=== PATIENT | female | born 1960 | race Caucasian/White ===

== ENCOUNTER 2016-12-18 10:55 | Observation (INO) | payer BC ==
[2016-12-18] MEDS ORDERED: Aspirin 81 MG Tab.Chew PO ONE (10:58)
[2016-12-18] MEDS ORDERED: Sodium Chloride 0.9% 1,000 ML IV ONE (10:58)
[2016-12-18] MEDS ORDERED: Alum Hydrox/Mag Hydrox/Simeth 15 ML, Metoclopramide 5 MG, Lidocaine 2% 5 ML PO ONE ×3 (11:39)
[2016-12-18] MEDS ORDERED: Ketorolac 30 MG/ML SDV IVPUSH ONE (11:39)
--- NOTE | 2016-12-18 11:41 | EDM.PDOC ---
ED HPI GENERAL MEDICAL PROBLEM - General Chief Complaint: Chest Pain Stated Complaint: CHEST PAIN Time Seen by Provider: 12/18/16 10:55 Source of Information: Reports: Patient History Limitations: Reports: No limitations - History of Present Illness INITIAL COMMENTS - FREE TEXT/NARRATIVE: History of present illness: [56-year-old female comes in with complaints of chest pressure radiating arm pain numbness as well as lip numbness and some minor neck pressure on the left. Patient has a strong family history of cardiac problems as well as some neurologic history of her own.] Review of systems: As per history of present illness and below otherwise all systems reviewed and negative. Past medical history: As per history of present illness and as reviewed below otherwise noncontributory. Surgical history: As per history of present illness and as reviewed below otherwise noncontributory. Social history: No reported history of drug or alcohol abuse. Family history: As per history of present illness and as reviewed below otherwise noncontributory. Physical exam: HEENT: Atraumatic, normocephalic, pupils reactive, negative for conjunctival pallor or scleral icterus, mucous membranes moist, throat clear, neck supple, nontender, trachea midline. Lungs: Clear to auscultation, breath sounds equal bilaterally, chest nontender. Heart: S1S2, regular, negative for clicks, rubs, or JVD. Abdomen: Soft, nondistended, nontender. Negative for masses or hepatosplenomegaly. Negative for costovertebral tenderness. Pelvis: Stable nontender. Genitourinary: Deferred. Rectal: Deferred. Extremities: Atraumatic, negative for cords or calf pain. Neurovascular unremarkable. Neuro: Awake, alert, oriented. Cranial nerves II through XII unremarkable. Cerebellum unremarkable. Motor and sensory unremarkable throughout. Exam nonfocal. All exams are negative at this time. Will admit patient observation for further cardiac monitoring. Diagnostics: [CBC, CMP, EKG, chest x-ray, troponin] Therapeutics: [IV] Impression: [chest pain] Plan: [admit for Observation] Definitive disposition and diagnosis as appropriate pending reevaluation and review of above. Left Chest Pain Score (Numeric/FACES): 3 - Related Data Allergies Allergy/AdvReac Type Severity Reaction Status Date / Time Penicillins Allergy Anaphylactic Verified 12/18/16 11:10 Shock venom-honey bee Allergy Anaphylactic Verified 12/18/16 11:10 [bee venom (honey bee)] Shock Home Meds: Home Meds Acetaminophen [Tylenol] 2 tab PO TID 09/14/16 [History] Citalopram Hydrobromide [Citalopram HBr] 1 tab PO BEDTIME 09/14/16 [History] Citalopram [Celexa] 1 tab PO BEDTIME 09/14/16 [History] Cyclobenzaprine [Flexeril] 1 tab PO DAILY PRN 09/14/16 [History] Cyclobenzaprine [Flexeril] 10 mg PO TID #30 tablet 09/14/16 [Rx] Gabapentin [Gabapentin] 4 cap PO TID 09/14/16 [History] LORazepam [LORazepam] 1 tab PO BEDTIME 09/14/16 [History] Pantoprazole [Protonix] 40 mg PO BEDTIME 09/14/16 [History] Prednisone [IJD: predniSONE] 20 mg PO WITHBREAKFAST #20 tab 09/14/16 [Rx] Simvastatin [Simvastatin] 1 tab PO BEDTIME 09/14/16 [History] Past Medical History HEENT History: Reports: None Cardiovascular History: Reports: High cholesterol, Hypertension Other Cardiovascular History: Pt stated "I had blood pressure problems in the past". 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 - Infectious Disease History Infectious Disease History: Reports: Chicken pox, Shingles - Past Surgical History GI Surgical History: Reports: Appendectomy Female Surgical History: Reports: Hysterectomy, Salpingo-oophorectomy Social & Family History - Family History Family Medical History: Noncontributory - Tobacco Use Smoking Status *Q: Current Every Day Smoker Years of Tobacco use: 15 Packs/Tins Daily: 0.5 - Caffeine Use Caffeine Use: Reports: Coffee Caffeine Use Comment: 2cups/day - Recreational Drug Use Recreational Drug Use: No ED ROS GENERAL - Review of Systems Review Of Systems: See Below (See history of present illness) ED EXAM, GENERAL - Physical Exam Exam: See Below (See history of present illness) Course - Vital Signs Last Recorded V/S: Last Vital Signs Temp 38.0 C 12/18/16 11:12 Pulse 95 04/04/17 11:12 Resp 20 12/18/16 11:12 BP 117/84 12/18/16 11:12 Pulse Ox 95 12/18/16 11:12 - Orders/Labs/Meds Orders: Active Orders 24 hr Category Date Time Status EKG Documentation Completion [RC] STAT Care 12/18/16 10:59 Active Labs: Laboratory Tests 12/18/16 12/18/16 12/18/16 Range/Units 11:15 11:15 11:15 WBC 10.18 (4.0-11.0) K/uL RBC 4.76 (4.30-5.90) M/uL Hgb 14.7 (12.0-16.0) g/dL Hct 45.3 (36.0-46.0) % MCV 95.2 (80.0-98.0) fL MCH 30.9 (27.0-32.0) pg MCHC 32.5 (31.0-37.0) g/dL RDW Std Deviation 49.7 (28.0-62.0) fl RDW Coeff of Robert 14 (11.0-15.0) % Plt Count 324 (150-400) K/uL MPV 10.00 (7.40-12.00) fL Neut % (Auto) 67.1 (48.0-80.0) % Lymph % (Auto) 25.0 (16.0-40.0) % Anson % (Auto) 6.6 (0.0-15.0) % Eos % (Auto) 0.9 (0.0-7.0) % Baso % (Auto) 0.4 (0.0-1.5) % Neut # (Auto) 6.8 H (1.4-5.7) K/uL Lymph # (Auto) 2.6 H (0.6-2.4) K/uL Anson # (Auto) 0.7 (0.0-0.8) K/uL Eos # (Auto) 0.1 (0.0-0.7) K/uL Baso # (Auto) 0.0 (0.0-0.1) K/uL Nucleated RBC % 0.0 /100WBC Nucleated RBCs # 0 K/uL INR 0.98 (0.86-1.11) Sodium 140 (136-146) mmol/L Potassium 4.4 (3.5-5.1) mmol/L Chloride 109 (98-110) mmol/L Carbon Dioxide 22 (21-31) mmol/L BUN 13 (6.0-23.0) mg/dL Creatinine 0.8 (0.6-1.5) mg/dL Est Cr Clr Drug Dosing 66.19 mL/min Estimated GFR (MDRD) > 60.0 ml/min Glucose 101 (60-110) mg/dL Calcium 8.9 (8.8-10.8) mg/dL Total Bilirubin 0.4 (0.1-1.5) mg/dL AST 20 (5-40) IU/L ALT 19 (8-54) IU/L Alkaline Phosphatase 90 (40-150) Troponin I (0.0-0.29) NG/ML Total Protein 7.1 (6.0-8.0) g/dL Albumin 4.0 (3.5-5.0) g/dL Globulin 3.1 (2.0-3.5) g/dL Albumin/Globulin Ratio 1.3 (1.3-2.8) Amylase 59 (10-90) U/L Lipase 43 (7-80) U/L Urine Color Urine Appearance Urine pH (5.0-8.0) Ur Specific [place] (1.001-1.035) Urine Protein (NEGATIVE) mg/dL Urine Glucose (UA) (NEGATIVE) mg/dL Urine Ketones (NEGATIVE) mg/dL Urine Occult Blood (NEGATIVE) Urine Nitrite (NEGATIVE) Urine Bilirubin (NEGATIVE) Urine Urobilinogen (<2.0) EU/dL Ur Leukocyte Esterase (NEGATIVE) Urine RBC (0-2/HPF) Urine WBC (0-5/HPF) Ur Epithelial Cells (NONE-FEW) Urine Bacteria (NEGATIVE) Urine HCG, Qual (NEGATIVE) 12/18/16 12/18/16 12/18/16 Range/Units 11:15 11:30 11:30 WBC (4.0-11.0) K/uL RBC (4.30-5.90) M/uL Hgb (12.0-16.0) g/dL Hct (36.0-46.0) % MCV (80.0-98.0) fL MCH (27.0-32.0) pg MCHC (31.0-37.0) g/dL RDW Std Deviation (28.0-62.0) fl RDW Coeff of Robert (11.0-15.0) % Plt Count (150-400) K/uL MPV (7.40-12.00) fL Neut % (Auto) (48.0-80.0) % Lymph % (Auto) (16.0-40.0) % Anson % (Auto) (0.0-15.0) % Eos % (Auto) (0.0-7.0) % Baso % (Auto) (0.0-1.5) % Neut # (Auto) (1.4-5.7) K/uL Lymph # (Auto) (0.6-2.4) K/uL Anson # (Auto) (0.0-0.8) K/uL Eos # (Auto) (0.0-0.7) K/uL Baso # (Auto) (0.0-0.1) K/uL Nucleated RBC % /100WBC Nucleated RBCs # K/uL INR (0.86-1.11) Sodium (136-146) mmol/L Potassium (3.5-5.1) mmol/L Chloride (98-110) mmol/L Carbon Dioxide (21-31) mmol/L BUN (6.0-23.0) mg/dL Creatinine (0.6-1.5) mg/dL Est Cr Clr Drug Dosing mL/min Estimated GFR (MDRD) ml/min Glucose (60-110) mg/dL Calcium (8.8-10.8) mg/dL Total Bilirubin (0.1-1.5) mg/dL AST (5-40) IU/L ALT (8-54) IU/L Alkaline Phosphatase (40-150) Troponin I < 0.10 (0.0-0.29) NG/ML Total Protein (6.0-8.0) g/dL Albumin (3.5-5.0) g/dL Globulin (2.0-3.5) g/dL Albumin/Globulin Ratio (1.3-2.8) Amylase (10-90) U/L Lipase (7-80) U/L Urine Color YELLOW Urine Appearance CLEAR Urine pH 7.5 (5.0-8.0) Ur Specific [place] 1.010 (1.001-1.035) Urine Protein NEGATIVE (NEGATIVE) mg/dL Urine Glucose (UA) NEGATIVE (NEGATIVE) mg/dL Urine Ketones NEGATIVE (NEGATIVE) mg/dL Urine Occult Blood NEGATIVE (NEGATIVE) Urine Nitrite NEGATIVE (NEGATIVE) Urine Bilirubin NEGATIVE (NEGATIVE) Urine Urobilinogen 0.2 (<2.0) EU/dL Ur Leukocyte Esterase NEGATIVE (NEGATIVE) Urine RBC 0-2 (0-2/HPF) Urine WBC 0-2 (0-5/HPF) Ur Epithelial Cells FEW (NONE-FEW) Urine Bacteria RARE (NEGATIVE) Urine HCG, Qual NEGATIVE (NEGATIVE) Meds: Medications Discontinued Medications Generic Name Dose Route Start Last Admin Trade Name Freq PRN Reason Stop Dose Admin Aspirin 324 mg 12/18/16 10:58 12/18/16 11:35 Aspirin PO 12/18/16 10:59 324 mg ONETIME ONE Administration Al Hydroxide/Mg Hydroxide 15 0 ml 12/18/16 11:39 12/18/16 12:17 ml/ Metoclopramide HCl 5 mg/ PO 12/18/16 11:40 1 each Lidocaine HCl 5 ml ONETIME ONE Administration Sodium Chloride 1,000 mls @ 999 mls/hr 12/18/16 10:58 12/18/16 11:37 Normal Saline IV 12/18/16 11:58 999 mls/hr .Bolus ONE Administration Ketorolac Tromethamine 30 mg 12/18/16 11:39 12/18/16 12:18 Toradol IVPUSH 12/18/16 11:40 30 mg ONETIME ONE Administration Departure - Departure Time of Disposition: 13:30 Disposition: Refer to Observation Condition: good Clinical Impression: Atypical chest pain Forms: ED Department Discharge - My Orders Last 24 Hours: My Active Orders 12/18/16 10:59 EKG Documentation Completion [RC] STAT - Assessment/Plan Last 24 Hours: My Active Orders 12/18/16 10:59 EKG Documentation Completion [RC] STAT
[2016-12-18 11:51] LABS: CHLORIDE,CL 109 mmol/L (98-110); SODIUM,NA 140 mmol/L (136-146)
--- NOTE | 2016-12-18 12:05 | CR ---
EXAMINATION: Two-view chest (PA and Lateral views). HISTORY: Chest pain. FINDINGS: The trachea is midline. The cardiomediastinal silhouette is within normal limits. No pulmonary infil trates, effusions or pneumothorax. Mild degenerative changes noted within the thoracic spine. IMPRESSION: No acute cardiopulmonary process.
[2016-12-18] MEDS ORDERED: Ondansetron 4 MG Tab.DIS PO PRN (13:48)
[2016-12-18] MEDS ORDERED: Morphine 10 MG/ML Syringe IVPUSH PRN (13:48)
[2016-12-18] MEDS ORDERED: Acetaminophen 325 MG Tab PO PRN (13:48)
--- NOTE | 2016-12-18 14:14 | PCM.HP ---
<BlakeSammy - Last Filed: 12/18/16 14:07> H&P History of Present Illness - General Date of Service: 12/18/16 Admit Problem/Dx: Admission Diagnosis/Problem Admission Diagnosis/Problem Chest pain Source of Information: Patient, Family - History of Present Illness Initial Comments - Free Text/Narative: 56 yo female admitted to obs 12/19/15 for chest pain with pmh of hyperlipidemia, current smoker, GERD and neuropathic pain disorder. Patient state that she began to have chest pain last evening while walking around her house. Pain was in her "left chest" with associated numbness and tingling in her left arm as well as lips. Pain was sharp "stabbing" and lasted for approximately 5 minutes. She did not take any medications for the pain and it was relieved on its own. She also reports some diaphoresis as well as shortness of breath with the pain. After pain was relieved she went to bed with no futher episodes. This morning however, she began to have the pain again with same associated numbness and tingling in her left arm and lips. She did not have shortness of breath or diaphoresis but does report some nausea and palpitations. She has a history of hyperlipidemia for which she takes simvastatin but no history of high blood pressure. She smokes 1/2 pack of ciragrettes daily for 16 years (8 pack years). She has a strong family history of heart disease with a father who of a "massive heart attack", a brother with multiple stents, and a sister who has had multiple "strokes". Patient does report a long history of GERD and had her last EGD approximately 3 years ago. She has had some increasing symptoms over the last several weeks. She reports no change in diet. She takes protonix 40 mg daily for this. She also has a neurpathic pain disorder for which she takes gabapentin and flexeril. She often gets pain in her legs as well as arms but states that there has been no significant change. She reports no recent illness and denies any current shortness of breath, nausea, vomiting, diarrhea, cough, sore throat, or nasal congestion. In ED, CBC, CMP, and UA were unremarkable. Troponin was neg and ECG showed no signs of acute ischemia. CXR revealed no acute cardiopulmonary processes. Secondary to multiple risk factors patient will be admitted for observation with serial troponins and telemetry. Left Chest Pain Score (Numeric/FACES): 3 - Related Data Allergies/Adverse Reactions: Allergies Allergy/AdvReac Type Severity Reaction Status Date / Time Penicillins Allergy Anaphylactic Verified 12/18/16 11:10 Shock venom-honey bee Allergy Anaphylactic Verified 12/18/16 11:10 [bee venom (honey bee)] Shock Home Medications: Home Meds Acetaminophen [Tylenol] 650 mg PO TID 09/14/16 [History] Citalopram [Celexa] 20 mg PO BEDTIME 09/14/16 [History] Cyclobenzaprine [Flexeril] 10 mg PO BEDTIME PRN 09/14/16 [History] Gabapentin [Gabapentin] 1,200 mg PO TID 09/14/16 [History] LORazepam [LORazepam] 1 mg PO BEDTIME 09/14/16 [History] Pantoprazole [Protonix] 40 mg PO BEDTIME 09/14/16 [History] Simvastatin [Simvastatin] 10 mg PO BEDTIME 09/14/16 [History] Acetaminophen with Codeine [Tylenol with Codeine #3 Tablet] 1 each PO TID [History] Hydrochlorothiazide 25 mg PO DAILY PRN 12/18/16 [History] Past Medical History HEENT History: Reports: None Cardiovascular History: Reports: High cholesterol, Hypertension Other Cardiovascular History: Pt stated "I had blood pressure problems in the past". [employer] WORK[employer] HELPER History: Reports: Dysfunctional uterine bleeding Musculoskeletal History: Reports: Fibromyalgia Other Musculoskeletal History: Pt complains of severe neck pain radiating to her upper back. 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 - Infectious Disease History Infectious Disease History: Reports: Chicken pox, Shingles - Past Surgical History GI Surgical History: Reports: Appendectomy Female Surgical History: Reports: Hysterectomy, Salpingo-oophorectomy Social & Family History - Family History Family Medical History: Noncontributory - Tobacco Use Smoking Status *Q: Current Every Day Smoker Years of Tobacco use: 15 Packs/Tins Daily: 0.5 - Caffeine Use Caffeine Use: Reports: Coffee Caffeine Use Comment: 2cups/day - Recreational Drug Use Recreational Drug Use: No H&P Review of Systems - Review of Systems: Review Of Systems: See Below General: Denies: fever, chills, diaphoresis HEENT: Denies: headaches, sinus congestion, sore throat Pulmonary: Denies: Shortness of Breath, Wheezing, Cough, Sputum Cardiovascular: Reports: chest pain. Denies: palpitations, edema, blood pressure problem Gastrointestinal: Denies: Abdominal pain, Black stool, Bloody stool, Diarrhea, Nausea, Vomiting Genitourinary: Denies: dysuria, hematuria Musculoskeletal: Reports: arm pain, back pain, leg pain. Denies: neck pain Skin: Denies: cyanosis Psychiatric: Denies: confusion Neurological: Denies: Confusion, Dizziness, Headache Hematologic/Lymphatic: Denies: anemia, easy bleeding, easy bruising Exam - Exam Exam: See Below - Vital Signs Vital Signs: Last Vital Signs Temp 38.0 C 12/18/16 11:12 Pulse 95 12/18/16 11:12 Resp 20 12/18/16 11:12 BP 117/84 12/18/16 11:12 Pulse Ox 95 12/18/16 11:12 Weight: 102.4 kg - Exam Quality Assessment: supplemental oxygen, DVT prophylaxis General: alert, oriented, cooperative HEENT: Conjunctiva clear, EACs clear, EOMI, Hearing intact, Mucosa moist & pink , Nares patent, Normal nasal septum, PERRLA Neck: supple, trachea midline. No: JVD Lungs: Clear to auscultation, Normal respiratory effort Cardiovascular: regular rate, regular rhythm, normal S1, normal S2 Abdomen: normal bowel sounds, soft. No: guarding, rigidity, rebound, tenderness Back Exam: normal inspection Extremities: normal inspection, normal pulses. No: calf tenderness, edema Peripheral Pulses: 2+: radial (L), radial (R), posterior tibial (L), posterior tibial (R), dorsalis pedis (L), dorsalis pedis (R) Skin: warm, dry, intact Neurological: cranial nerves intact Neuro Extensive - Mental Status: alert, oriented x3, normal mood/affect, normal cognition Neuro Extensive - Motor, Sensory, Reflexes: CN II-XII intact Psychiatric: alert, normal affect, normal mood - Patient Data Result Diagrams: 12/18/16 11:15 12/18/16 11:15 *Q Meaningful Use (ADM) - VTE *Q VTE Criteria *Q: - Stroke *Q Stroke Criteria *Q: - AMI *Q AMI Criteria *Q: - Problem List (1) Hyperlipidemia SNOMED Code(s): 66644732 ICD Code: E78.5 - HYPERLIPIDEMIA, UNSPECIFIED Status: Acute Priority: Medium Current Visit: Yes Qualifiers: Hyperlipidemia type: unspecified Qualified Code(s): E78.5 - Hyperlipidemia , unspecified (2) Smoker SNOMED Code(s): 62157962 ICD Code: F17.200 - NICOTINE DEPENDENCE, UNSPECIFIED, UNCOMPLICATED Status : Chronic Priority: Medium Current Visit: Yes (3) Atypical chest pain SNOMED Code(s): 443095944 ICD Code: R07.89 - OTHER CHEST PAIN Status: Acute Priority: High Current Visit: Yes Problem List Initiated/Reviewed/Updated: Yes Orders Last 24hrs: Active Orders 24 hr Category Date Time Status Patient Status [ADT] Routine ADT 12/18/16 13:48 Ordered Patient Status [ADT] Stat ADT 12/18/16 13:48 Active Antiembolic Devices [RC] PER UNIT ROUTINE Care 12/18/16 13:51 Ordered Oxygen Therapy [RC] PRN Care 12/18/16 13:48 Ordered Telemetry Monitoring [Cardiac Monitoring] [RC] . Care 12/18/16 13:54 Ordered DIRECTED Up With Assistance [RC] ASDIRECTED Care 12/18/16 13:48 Ordered VTE/DVT Education [RC] PER UNIT ROUTINE Care 12/18/16 13:48 Ordered Vital Signs [RC] Q4H Care 12/18/16 13:48 Ordered Regular Diet [DIET] Diet 12/18/16 Dinner Ordered BASIC METABOLIC PANEL,BMP [CHEM] DAILY Lab 12/19/16 05:00 Ordered BASIC METABOLIC PANEL,BMP [CHEM] DAILY Lab 12/20/16 05:00 Ordered BASIC METABOLIC PANEL,BMP [CHEM] DAILY Lab 12/21/16 05:00 Ordered CBC WITH AUTO DIFF [HEME] DAILY Lab 12/19/16 05:00 Ordered CBC WITH AUTO DIFF [HEME] DAILY Lab 12/20/16 05:00 Ordered CBC WITH AUTO DIFF [HEME] DAILY Lab 12/21/16 05:00 Ordered HELICOBACTER PYLORI AB IGG [CHEM] Routine Lab 12/18/16 13:48 Ordered TROPONIN I [CHEM] Q6H Lab 12/18/16 17:15 Ordered TROPONIN I [CHEM] Q6H Lab 12/18/16 23:15 Ordered Acetaminophen [Tylenol] Med 12/18/16 13:48 Ordered 650 mg PO Q4H PRN Enoxaparin [Lovenox] Med 12/18/16 14:00 Ordered 40 mg SUBCUT DAILY Morphine Med 12/18/16 13:48 Ordered 2 mg IVPUSH Q2H PRN Ondansetron [Zofran ODT] Med 12/18/16 13:48 Ordered 4 mg PO Q4H PRN Sodium Chloride 0.9% @ 150 MLS/HR (1,000ml) Med 12/18/16 14:00 Ordered Sodium Chloride 0.9% [Normal Saline] 1,000 ml IV ASDIRECTED Sequential Compression Device [OM.PC] Per Unit Routine Oth 12/18/16 13:50 Ordered Resuscitation Status Routine Resus Stat 12/18/16 13:48 Ordered Medication Orders Acetaminophen (Tylenol) 650 mg PO Q4H PRN PRN Reason: Pain (Mild 1-3)/fever Enoxaparin Sodium (Lovenox) 40 mg SUBCUT DAILY IFEOMA Sodium Chloride (Normal Saline) 1,000 mls @ 150 mls/hr IV ASDIRECTED IFEOMA Morphine Sulfate (Morphine) 2 mg IVPUSH Q2H PRN PRN Reason: Pain (severe 7-10) Stop: 12/19/16 13:50 Ondansetron HCl (Zofran Odt) 4 mg PO Q4H PRN PRN Reason: nausea, able to take PO Assessment/Plan Comment:: 56 yo female admitted to obs 12/19/15 for chest pain with pmh of hyperlipidemia, current smoker, GERD and neuropathic pain disorder. Atypical chest pain: ECG neg for acute ischemic changes. Initial troponin neg. Will admit to obs and get serial troponin q 6hrs. Will place on telemetry and monitor overnight. GERD: Increasing symptoms over the past several weeks will cont. home meds and test for h-pylori. Will plan to have her referred to surgery as outpatient for possible EGD. Neuropathic pain disorder: Stable at this time will restart home meds. VTE: SCD and Lovenox 40 mg subq daily. Dispo: Tomorrow pending with outpatient cardiology follow-up, stress test, PCP follow-up, and surgery follow-up for GERD <Antwon Young O - Last Filed: 12/18/16 19:24> H&P History of Present Illness - General Admit Problem/Dx: Admission Diagnosis/Problem Admission Diagnosis/Problem Chest pain Exam - Vital Signs Vital Signs: Last Vital Signs Temp 36.3 C 12/18/16 11:05 Pulse 67 12/18/16 13:44 Resp 16 12/18/16 13:44 BP 140/79 12/18/16 13:44 Pulse Ox 99 12/18/16 13:44 - Patient Data Lab Results last 24 hrs: Laboratory Results - last 24 hr 12/18/16 Range/Units 17:05 Troponin I < 0.10 (0.0-0.29) NG/ML Result Diagrams: 12/18/16 11:15 12/18/16 11:15 *Q Meaningful Use (ADM) - VTE *Q VTE Criteria *Q: - Stroke *Q Stroke Criteria *Q: - AMI *Q AMI Criteria *Q: Orders Last 24hrs: Active Orders 24 hr Category Date Time Status Patient Status [ADT] Routine ADT 12/18/16 13:48 Active Patient Status [ADT] Stat ADT 12/18/16 13:48 Active Antiembolic Devices [RC] Q4H Care 12/18/16 13:51 Active Oxygen Therapy [RC] PRN Care 12/18/16 13:48 Active Telemetry Monitoring [Cardiac Monitoring] [RC] Q8H Care 12/18/16 13:54 Active Up With Assistance [RC] ASDIRECTED Care 12/18/16 13:48 Active Vital Signs [RC] Q4H Care 12/18/16 13:48 Active Regular Diet [DIET] Diet 12/18/16 Dinner Active BASIC METABOLIC PANEL,BMP [CHEM] DAILY Lab 12/19/16 05:00 Ordered BASIC METABOLIC PANEL,BMP [CHEM] DAILY Lab 12/20/16 05:00 Ordered BASIC METABOLIC PANEL,BMP [CHEM] DAILY Lab 12/21/16 05:00 Ordered CBC WITH AUTO DIFF [HEME] DAILY Lab 12/19/16 05:00 Ordered CBC WITH AUTO DIFF [HEME] DAILY Lab 12/20/16 05:00 Ordered CBC WITH AUTO DIFF [HEME] DAILY Lab 12/21/16 05:00 Ordered TROPONIN I [CHEM] Q6H Lab 12/18/16 23:15 Ordered Acetaminophen [Tylenol] Med 12/18/16 13:48 Active 650 mg PO Q4H PRN Enoxaparin [Lovenox] Med 12/18/16 14:00 Active 40 mg SUBCUT DAILY Morphine Med 12/18/16 13:48 Active 2 mg IVPUSH Q2H PRN Ondansetron [Zofran ODT] Med 12/18/16 13:48 Active 4 mg PO Q4H PRN Sodium Chloride 0.9% [Normal Saline] 1,000 ml Med 12/18/16 14:00 Active IV ASDIRECTED Sequential Compression Device [OM.PC] Per Unit Routine Oth 12/18/16 13:50 Ordered Resuscitation Status Routine Resus Stat 12/18/16 13:48 Ordered Medication Orders Acetaminophen (Tylenol) 650 mg PO Q4H PRN PRN Reason: Pain (Mild 1-3)/fever Enoxaparin Sodium (Lovenox) 40 mg SUBCUT DAILY IFEOMA Last Admin: 12/18/16 14:52 Dose: 40 mg Sodium Chloride (Normal Saline) 1,000 mls @ 150 mls/hr IV ASDIRECTED IFEOMA Last Admin: 12/18/16 14:53 Dose: 150 mls/hr Morphine Sulfate (Morphine) 2 mg IVPUSH Q2H PRN PRN Reason: Pain (severe 7-10) Stop: 12/19/16 13:50 Ondansetron HCl (Zofran Odt) 4 mg PO Q4H PRN PRN Reason: nausea, able to take PO Assessment/Plan Comment:: I was present with the resident during the history and exam. I discussed the case with the resident and agree with the findings an ana as documented in the resident's note
[2016-12-18] MEDS: Enoxaparin 40 MG/0.4 ML Syringe SUBCUT SCH (14:52)
[2016-12-18] MEDS: Sodium Chloride 0.9% 1,000 ML IV SCH ×2 (14:53→21:48)
[2016-12-18] MEDS ORDERED: Flu Vaccine 2016-17(36Mos+)/PF 60 MCG/0.5 ML Syringe IM ONE (15:15)
[2016-12-18] MEDS ORDERED: Pneumococcal Polyvalent-23 Vaccine 0.5 ML SDV IM ONE (15:15)
[2016-12-18] MEDS ORDERED: LORazepam 1 MG Tab PO PRN (19:33)
[2016-12-18] MEDS: Acetaminophen/Codeine 300-30 MG Tab PO SCH (20:14)
[2016-12-18] MEDS ORDERED: Simvastatin 10 MG Tab PO SCH ×2 (21:00)
[2016-12-18] MEDS ORDERED: Citalopram 20 MG Tab PO SCH (21:00)
[2016-12-18] MEDS ORDERED: Pantoprazole 40 MG Tab.CR PO SCH ×2 (21:00)
[2016-12-18] MEDS ORDERED: LORazepam 1 MG Tab PO SCH (21:00)
[2016-12-18] MEDS: Gabapentin 300 MG Cap PO SCH (21:17)
[2016-12-18] MEDS: Acetaminophen 325 MG Tab PO SCH (21:17)
[2016-12-18] MEDS ORDERED: Gabapentin 300 MG Cap PO SCH (22:00)
[2016-12-19] MEDS: Acetaminophen/Codeine 300-30 MG Tab PO SCH ×2 (02:13→08:36)
[2016-12-19] MEDS ORDERED: Ketorolac 15 MG/ML SDV IVPUSH ONE (04:27)
[2016-12-19] MEDS: Sodium Chloride 0.9% 1,000 ML IV SCH (04:33)
[2016-12-19] MEDS: Gabapentin 300 MG Cap PO SCH (06:41)
[2016-12-19] MEDS: Acetaminophen 325 MG Tab PO SCH (06:41)
[2016-12-19] MEDS: Enoxaparin 40 MG/0.4 ML Syringe SUBCUT SCH (08:36)
[2016-12-19 08:48] VITALS: BP 153/72
[2016-12-19] MEDS ORDERED: Citalopram 20 MG Tab PO SCH (09:00)
--- NOTE | 2016-12-19 09:19 | PCM.DCSUM1 ---
<Sammy Blake - Last Filed: 12/19/16 09:11> Discharge Summary - Hospital Course HPI Initial Comments: 56 yo female admitted to obs 12/19/15 for chest pain with pmh of hyperlipidemia, current smoker, GERD and neuropathic pain disorder. Brief History: Patient stated that she began to have chest pain evening before admission while walking around her house. Pain was in her "left chest" with associated numbness and tingling in her left arm as well as lips. Pain was sharp "stabbing" and lasted for approximately 5 minutes. She did not take any medications for the pain and it was relieved on its own. She also reported some diaphoresis as well as shortness of breath with the pain. After pain was relieved she went to bed with no futher episodes. On morning of day of admission she began to have the pain again with same associated numbness and tingling in her left arm and lips. She did not have shortness of breath or diaphoresis but did report some nausea and palpitations. She has a history of hyperlipidemia for which she takes simvastatin but no history of high blood pressure. She smokes 1/2 pack of ciragrettes daily for 16 years (8 pack years) . She has a strong family history of heart disease with a father who of a "massive heart attack", a brother with multiple stents, and a sister who has had multiple "strokes". Patient did also report a long history of GERD and had her last EGD approximately 3 years ago. She had some increasing symptoms over the last several weeks. She reported no change in diet. She takes protonix 40 mg daily for this. She also has a neurpathic pain disorder for which she takes gabapentin and flexeril. She often gets pain in her legs as well as arms but stated that there had been no significant changes. She reported no recent illness and denied any shortness of breath, nausea, vomiting, diarrhea, cough, sore throat, or nasal congestion. - Discharge Data Discharge Date: 12/19/16 Discharge Disposition: Home, Self-Care 01 Condition: Good - Discharge Diagnosis/Problem(s) (1) Hyperlipidemia SNOMED Code(s): 23352432 ICD Code: E78.5 - HYPERLIPIDEMIA, UNSPECIFIED Status: Acute Priority: Medium Qualifiers: Hyperlipidemia type: unspecified Qualified Code(s): E78.5 - Hyperlipidemia , unspecified (2) Smoker SNOMED Code(s): 68676725 ICD Code: F17.200 - NICOTINE DEPENDENCE, UNSPECIFIED, UNCOMPLICATED Status : Chronic Priority: Medium (3) Atypical chest pain SNOMED Code(s): 899496444 ICD Code: R07.89 - OTHER CHEST PAIN Status: Acute Priority: High - Patient Summary/Data Hospital Course: see below summary. - Patient Instructions Diet: Heart Healthy Diet Activity: As Tolerated Driving: Do Not Drive Showering/Bathing: May Shower Notify Provider of: Fever, Increased Pain, Nausea and/or Vomiting - Discharge Plan Home Medications: Home Meds Acetaminophen [Tylenol] 650 mg PO TID 09/14/16 [History] Citalopram [Celexa] 20 mg PO BEDTIME 09/14/16 [History] Cyclobenzaprine [Flexeril] 10 mg PO BEDTIME PRN 09/14/16 [History] Gabapentin 1,200 mg PO TID 09/14/16 [History] LORazepam 1 mg PO BEDTIME 09/14/16 [History] Pantoprazole [ProTONIX] 40 mg PO BEDTIME 09/14/16 [History] Simvastatin 10 mg PO BEDTIME 09/14/16 [History] Acetaminophen with Codeine [Tylenol with Codeine #3 Tablet] 1 each PO TID [History] Hydrochlorothiazide 25 mg PO DAILY PRN 12/18/16 [History] Patient Handouts: Nonspecific Chest Pain, [facility] Forms: ED Department Discharge Referrals: Marylin Reyes MD [Physician] - 01/02/17 9:30 am (Follow up with Cardiology, stress test prior to this appointment. Voicemail left with scheduling, they will call you for an appointment. ) Xiomy Mckay MD [Physician] - 12/21/16 1:00 pm (EGD with MD Mckay. Check in at out patient surgery center.) PCP,None [Primary Care Provider] - 12/27/16 11:00 am (Meet Dave follow up appointment check in time 1045) - Discharge Summary/Plan Comment DC Time >30 min.: Yes Discharge Summary/Plan Comment: 56 yo female admitted to obs 12/19/15 for chest pain with pmh of hyperlipidemia, current smoker, GERD and neuropathic pain disorder. Patient stated that she began to have chest pain evening before admission while walking around her house. Pain was in her "left chest" with associated numbness and tingling in her left arm as well as lips. Pain was sharp "stabbing" and lasted for approximately 5 minutes. She did not take any medications for the pain and it was relieved on its own. She also reported some diaphoresis as well as shortness of breath with the pain. After pain was relieved she went to bed with no futher episodes. On morning of day of admission she began to have the pain again with same associated numbness and tingling in her left arm and lips. She did not have shortness of breath or diaphoresis but did report some nausea and palpitations. She has a history of hyperlipidemia for which she takes simvastatin but no history of high blood pressure. She smokes 1/2 pack of ciragrettes daily for 16 years (8 pack years). She has a strong family history of heart disease with a father who of a "massive heart attack", a brother with multiple stents, and a sister who has had multiple "strokes". Patient did also report a long history of GERD and had her last EGD approximately 3 years ago. She had some increasing symptoms over the last several weeks. She reported no change in diet. She takes protonix 40 mg daily for this. She also has a neurpathic pain disorder for which she takes gabapentin and flexeril. She often gets pain in her legs as well as arms but stated that there had been no significant changes. She reported no recent illness and denied any shortness of breath, nausea, vomiting, diarrhea, cough, sore throat, or nasal congestion. In ED, CBC, CMP, and UA were unremarkable. Troponin was neg and ECG showed no signs of acute ischemia. CXR revealed no acute cardiopulmonary processes. Secondary to multiple risk factors patient was admitted for observation with serial troponins and telemetry. Patient did well and serial troponins were negative. She did have some chest pain during the evening but telemetry showed no changes. Secondary to her risk factors and family history we did set the patient up for an outpatient stress test as well as a follow-up with Dr. Mayorga, mold maker helper. Secondary to her increasing "heartburn" and history of GERD we also set the patient up with a surgery follow-up for possible EGD. She was h-pylori negative. In addition, we scheduled a follow-up appointment with her PCP in [facility]. - General Info Date of Service: 12/19/16 Admission Dx/Problem (Free Text: Admission Diagnosis/Problem Admission Diagnosis/Problem Chest pain Functional Status: Reports: pain controlled, tolerating diet, ambulating, urinating - Review of Systems General: Denies: Fever, Weakness, Fatigue HEENT: Denies: contact lenses, dysphasia Pulmonary: Denies: shortness of breath, hemoptysis, wheezing Cardiovascular: Denies: Chest Pain, Palpitations, Lightheadedness Gastrointestinal: Denies: Abdominal pain, Nausea, Vomiting Genitourinary: Denies: dysuria Musculoskeletal: Denies: neck pain, foot pain Skin: Denies: cyanosis Neurological: Denies: Confusion, Dizziness Psychiatric: Denies: confusion - Patient Data Vitals - Most Recent: Last Vital Signs Temp 36.2 C 12/19/16 08:00 Pulse 67 12/18/16 13:44 Resp 11 L 12/19/16 08:00 BP 153/72 H 12/19/16 08:00 Pulse Ox 96 12/19/16 08:00 Weight - Most Recent: 102.965 kg I&O - Last 24 hours: Intake & Output 12/18/16 12/19/16 12/19/16 22:59 06:59 14:59 Intake Total 1000 1350 Output Total 200 600 Balance 800 750 Lab Results - Last 24 hrs: Laboratory Results - last 24 hr 12/18/16 12/18/16 12/19/16 Range/Units 17:05 23:00 04:55 WBC 9.09 (4.0-11.0) K/uL RBC 4.14 L (4.30-5.90) M/uL Hgb 12.8 (12.0-16.0) g/dL Hct 39.6 (36.0-46.0) % MCV 95.7 (80.0-98.0) fL MCH 30.9 (27.0-32.0) pg MCHC 32.3 (31.0-37.0) g/dL RDW Std Deviation 49.2 (28.0-62.0) fl RDW Coeff of Robert 14 (11.0-15.0) % Plt Count 283 (150-400) K/uL MPV 9.80 (7.40-12.00) fL Neut % (Auto) 46.5 L (48.0-80.0) % Lymph % (Auto) 42.4 H (16.0-40.0) % Petroleum % (Auto) 8.8 (0.0-15.0) % Eos % (Auto) 1.9 (0.0-7.0) % Baso % (Auto) 0.4 (0.0-1.5) % Neut # (Auto) 4.2 (1.4-5.7) K/uL Lymph # (Auto) 3.9 H (0.6-2.4) K/uL Petroleum # (Auto) 0.8 (0.0-0.8) K/uL Eos # (Auto) 0.2 (0.0-0.7) K/uL Baso # (Auto) 0.0 (0.0-0.1) K/uL Nucleated RBC % 0.0 /100WBC Nucleated RBCs # 0 K/uL Troponin I < 0.10 < 0.10 (0.0-0.29) NG/ML Med Orders - Current: Current Medications Acetaminophen (Tylenol) 650 mg PO Q4H PRN PRN Reason: Pain (Mild 1-3)/fever Acetaminophen (Tylenol) 650 mg PO TID [facility] Last Admin: 12/19/16 06:41 Dose: 650 mg Acetaminophen/Codeine Phosphate (Tylenol With Codeine No.3 300mg/30mg) 1 tab PO Q6H [facility] Last Admin: 12/19/16 08:36 Dose: 1 tab Citalopram Hydrobromide (Celexa) 20 mg PO BEDTIME [facility] Last Admin: 12/18/16 20:16 Dose: 20 mg Enoxaparin Sodium (Lovenox) 40 mg SUBCUT DAILY [facility] Last Admin: 12/19/16 08:36 Dose: 40 mg Gabapentin (Neurontin) 1,200 mg PO TID [facility] Last Admin: 12/19/16 06:41 Dose: 1,200 mg Sodium Chloride (Normal Saline) 1,000 mls @ 150 mls/hr IV ASDIRECTED [facility] Last Admin: 12/19/16 04:33 Dose: 150 mls/hr Lorazepam (Ativan) 1 mg PO BEDTIME PRN PRN Reason: Insomnia Lorazepam (Ativan) 1 mg PO BEDTIME [facility] Last Admin: 12/18/16 20:17 Dose: 1 mg Morphine Sulfate (Morphine) 2 mg IVPUSH Q2H PRN PRN Reason: Pain (severe 7-10) Ondansetron HCl (Zofran Odt) 4 mg PO Q4H PRN PRN Reason: nausea, able to take PO Pantoprazole Sodium (Protonix) 40 mg PO BEDTIME [facility] Last Admin: 12/18/16 20:17 Dose: 40 mg Simvastatin (Zocor) 10 mg PO BEDTIME [facility] Last Admin: 12/18/16 20:16 Dose: 10 mg Discontinued Medications Aspirin (Aspirin) 324 mg PO ONETIME ONE Stop: 12/18/16 10:59 Last Admin: 12/18/16 11:35 Dose: 324 mg Citalopram Hydrobromide (Celexa) 20 mg PO DAILY [facility] Al Hydroxide/Mg Hydroxide 15 ml/ Metoclopramide HCl 5 mg/Lidocaine HCl 5 ml 0 ml PO ONETIME ONE Stop: 12/18/16 11:40 Last Admin: 12/18/16 12:17 Dose: 1 each Gabapentin (Neurontin) 1,200 mg PO TID [facility] Sodium Chloride (Normal Saline) 1,000 mls @ 999 mls/hr IV .Bolus ONE Stop: 12/18/16 11:58 Last Admin: 12/18/16 11:37 Dose: 999 mls/hr Influenza Virus Vaccine (Fluzone/Fluarix 2015- Vaccine) 60 mcg IM .ONCE ONE Stop: 12/18/16 15:16 Ketorolac Tromethamine (Toradol) 30 mg IVPUSH ONETIME ONE Stop: 12/18/16 11:40 Last Admin: 12/18/16 12:18 Dose: 30 mg Ketorolac Tromethamine (Toradol) 15 mg IVPUSH ONETIME ONE Stop: 12/19/16 04:28 Last Admin: 12/19/16 04:34 Dose: 15 mg Pantoprazole Sodium (Protonix) 40 mg PO BEDTIME [facility] Pneumococcal Polyvalent Vaccine (Pneumovax 23) 0.5 ml IM .ONCE ONE Stop: 12/18/16 15:16 Simvastatin (Zocor) 10 mg PO BEDTIME IFEOMA - Exam Quality Assessment: Reports: DVT prophylaxis General: Reports: alert, oriented, cooperative, no acute distress HEENT: Reports: Pupils equal, Pupils reactive, EOMI, Mucous membr. moist/pink Neck: Reports: supple, trachea midline Lungs: Reports: Clear to auscultation, Normal respiratory effort Cardiovascular: Reports: Regular Rate, Regular Rhythm Abdomen: Reports: bowel sounds present, soft, no tenderness, no distension Back Exam: Reports: normal inspection Extremities: Reports: no edema, normal pulses Skin: Reports: warm, dry, intact Neurological: Reports: no new focal deficit Psy/Mental Status: Reports: alert, normal affect, normal mood *Q Meaningful Use (DIS) - VTE *Q VTE Criteria *Q: - Stroke *Q Stroke Criteria *Q: - AMI *Q AMI Criteria *Q: <Antwon Young O - Last Filed: 12/19/16 14:56> Discharge Summary - Discharge Summary/Plan Comment Discharge Summary/Plan Comment: I was present with the resident during the history and exam. I discussed the case with the resident and agree with the findings and plan as outlined in the resident's note - Patient Data Vitals - Most Recent: Last Vital Signs Temp 36.2 C 12/19/16 08:00 Pulse 67 12/18/16 13:44 Resp 11 L 12/19/16 08:00 BP 153/72 H 12/19/16 08:00 Pulse Ox 96 12/19/16 08:00 I&O - Last 24 hours: Intake & Output 12/18/16 12/19/16 12/19/16 22:59 06:59 14:59 Intake Total 1000 1350 Output Total 200 600 Balance 800 750 Lab Results - Last 24 hrs: Laboratory Results - last 24 hr 12/18/16 12/18/16 12/19/16 Range/Units 17:05 23:00 04:55 WBC 9.09 (4.0-11.0) K/uL RBC 4.14 L (4.30-5.90) M/uL Hgb 12.8 (12.0-16.0) g/dL Hct 39.6 (36.0-46.0) % MCV 95.7 (80.0-98.0) fL MCH 30.9 (27.0-32.0) pg MCHC 32.3 (31.0-37.0) g/dL RDW Std Deviation 49.2 (28.0-62.0) fl RDW Coeff of Robert 14 (11.0-15.0) % Plt Count 283 (150-400) K/uL MPV 9.80 (7.40-12.00) fL Neut % (Auto) 46.5 L (48.0-80.0) % Lymph % (Auto) 42.4 H (16.0-40.0) % Petroleum % (Auto) 8.8 (0.0-15.0) % Eos % (Auto) 1.9 (0.0-7.0) % Baso % (Auto) 0.4 (0.0-1.5) % Neut # (Auto) 4.2 (1.4-5.7) K/uL Lymph # (Auto) 3.9 H (0.6-2.4) K/uL Petroleum # (Auto) 0.8 (0.0-0.8) K/uL Eos # (Auto) 0.2 (0.0-0.7) K/uL Baso # (Auto) 0.0 (0.0-0.1) K/uL Nucleated RBC % 0.0 /100WBC Nucleated RBCs # 0 K/uL Sodium (136-146) mmol/L Potassium (3.5-5.1) mmol/L Chloride (98-110) mmol/L Carbon Dioxide (21-31) mmol/L BUN (6.0-23.0) mg/dL Creatinine (0.6-1.5) mg/dL Est Cr Clr Drug Dosing mL/min Estimated GFR (MDRD) ml/min Glucose (60-110) mg/dL Calcium (8.8-10.8) mg/dL Troponin I < 0.10 < 0.10 (0.0-0.29) NG/ML 12/19/16 Range/Units 04:55 WBC (4.0-11.0) K/uL RBC (4.30-5.90) M/uL Hgb (12.0-16.0) g/dL Hct (36.0-46.0) % MCV (80.0-98.0) fL MCH (27.0-32.0) pg MCHC (31.0-37.0) g/dL RDW Std Deviation (28.0-62.0) fl RDW Coeff of Robert (11.0-15.0) % Plt Count (150-400) K/uL MPV (7.40-12.00) fL Neut % (Auto) (48.0-80.0) % Lymph % (Auto) (16.0-40.0) % Petroleum % (Auto) (0.0-15.0) % Eos % (Auto) (0.0-7.0) % Baso % (Auto) (0.0-1.5) % Neut # (Auto) (1.4-5.7) K/uL Lymph # (Auto) (0.6-2.4) K/uL Petroleum # (Auto) (0.0-0.8) K/uL Eos # (Auto) (0.0-0.7) K/uL Baso # (Auto) (0.0-0.1) K/uL Nucleated RBC % /100WBC Nucleated RBCs # K/uL Sodium 143 (136-146) mmol/L Potassium 4.6 (3.5-5.1) mmol/L Chloride 114 H (98-110) mmol/L Carbon Dioxide 22 (21-31) mmol/L BUN 12 (6.0-23.0) mg/dL Creatinine 0.8 (0.6-1.5) mg/dL Est Cr Clr Drug Dosing 66.19 mL/min Estimated GFR (MDRD) > 60.0 ml/min Glucose 88 (60-110) mg/dL Calcium 7.8 L (8.8-10.8) mg/dL Troponin I (0.0-0.29) NG/ML Med Orders - Current: Current Medications Discontinued Medications Acetaminophen (Tylenol) 650 mg PO Q4H PRN PRN Reason: Pain (Mild 1-3)/fever Acetaminophen (Tylenol) 650 mg PO TID [facility] Last Admin: 12/19/16 06:41 Dose: 650 mg Acetaminophen/Codeine Phosphate (Tylenol With Codeine No.3 300mg/30mg) 1 tab PO Q6H [facility] Last Admin: 12/19/16 08:36 Dose: 1 tab Aspirin (Aspirin) 324 mg PO ONETIME ONE Stop: 12/18/16 10:59 Last Admin: 12/18/16 11:35 Dose: 324 mg Citalopram Hydrobromide (Celexa) 20 mg PO DAILY [facility] Citalopram Hydrobromide (Celexa) 20 mg PO BEDTIME [facility] Last Admin: 12/18/16 20:16 Dose: 20 mg Al Hydroxide/Mg Hydroxide 15 ml/ Metoclopramide HCl 5 mg/Lidocaine HCl 5 ml 0 ml PO ONETIME ONE Stop: 12/18/16 11:40 Last Admin: 12/18/16 12:17 Dose: 1 each Enoxaparin Sodium (Lovenox) 40 mg SUBCUT DAILY [facility] Last Admin: 12/19/16 08:36 Dose: 40 mg Gabapentin (Neurontin) 1,200 mg PO TID IFEOMA Gabapentin (Neurontin) 1,200 mg PO TID [facility] Last Admin: 12/19/16 06:41 Dose: 1,200 mg Sodium Chloride (Normal Saline) 1,000 mls @ 999 mls/hr IV .Bolus ONE Stop: 12/18/16 11:58 Last Admin: 12/18/16 11:37 Dose: 999 mls/hr Sodium Chloride (Normal Saline) 1,000 mls @ 150 mls/hr IV ASDIRECTED [facility] Last Admin: 12/19/16 04:33 Dose: 150 mls/hr Influenza Virus Vaccine (Fluzone/Fluarix 2016- Vaccine) 60 mcg IM .ONCE ONE Stop: 12/18/16 15:16 Last Admin: 12/19/16 10:51 Dose: Not Given Influenza Virus Vaccine (Fluzone/Fluarix 2016-17 Vaccine) 60 mcg IM .ONCE ONE Stop: 12/19/16 10:31 Last Admin: 12/19/16 11:54 Dose: 60 mcg Ketorolac Tromethamine (Toradol) 30 mg IVPUSH ONETIME ONE Stop: 12/18/16 11:40 Last Admin: 12/18/16 12:18 Dose: 30 mg Ketorolac Tromethamine (Toradol) 15 mg IVPUSH ONETIME ONE Stop: 12/19/16 04:28 Last Admin: 12/19/16 04:34 Dose: 15 mg Lorazepam (Ativan) 1 mg PO BEDTIME PRN PRN Reason: Insomnia Lorazepam (Ativan) 1 mg PO BEDTIME [facility] Last Admin: 12/18/16 20:17 Dose: 1 mg Morphine Sulfate (Morphine) 2 mg IVPUSH Q2H PRN PRN Reason: Pain (severe 7-10) Ondansetron HCl (Zofran Odt) 4 mg PO Q4H PRN PRN Reason: nausea, able to take PO Pantoprazole Sodium (Protonix) 40 mg PO BEDTIME IFEOMA Pantoprazole Sodium (Protonix) 40 mg PO BEDTIME IFEOMA Last Admin: 12/18/16 20:17 Dose: 40 mg Pneumococcal Polyvalent Vaccine (Pneumovax 23) 0.5 ml IM .ONCE ONE Stop: 12/18/16 15:16 Last Admin: 12/19/16 10:51 Dose: Not Given Pneumococcal Polyvalent Vaccine (Pneumovax 23) 0.5 ml IM .ONCE ONE Stop: 12/19/16 10:31 Last Admin: 12/19/16 11:52 Dose: 0.5 ml Simvastatin (Zocor) 10 mg PO BEDTIME IFEOMA Simvastatin (Zocor) 10 mg PO BEDTIME IFEOMA Last Admin: 12/18/16 20:16 Dose: 10 mg *Q Meaningful Use (DIS) - VTE *Q VTE Criteria *Q: - Stroke *Q Stroke Criteria *Q: - AMI *Q AMI Criteria *Q:
[2016-12-19] MEDS ORDERED: Pneumococcal Polyvalent-23 Vaccine 0.5 ML SDV IM ONE (10:30)
[2016-12-19] MEDS ORDERED: Flu Vaccine 2016-17(36Mos+)/PF 60 MCG/0.5 ML Syringe IM ONE (10:30)
[2016-12-19 13:28] LABS: CHLORIDE,CL 114 mmol/L (98-110); SODIUM,NA 143 mmol/L (136-146)
== END 2016-12-19 12:20 | disposition home or self-care (01) ==
LOC: MW.ED 10:55 → MW.MS 13:41 → MW.ICU 22:32
PROVIDERS: ADMIT Internal Medicine; ATTEND Internal Medicine
PROC: 3E0234Z Introduction of Serum, Toxoid and Vaccine into Muscle, Percutaneous Approach (ICD-10-PCS; principal; 2016-12-19)
DX: R07.89 Other chest pain (principal); Z88.0 Allergy status to penicillin; I10 Essential (primary) hypertension; E78.00 Pure hypercholesterolemia, unspecified; M79.7 Fibromyalgia; F17.210 Nicotine dependence, cigarettes, uncomplicated; E78.5 Hyperlipidemia, unspecified; K21.9 Gastro-esophageal reflux disease without esophagitis; G62.9 Polyneuropathy, unspecified; Z23 Encounter for immunization
CPT/HCPCS: 36415; 71020; 80048; 80053; 81001; 81025; 82150; 83690; 84484; 85025; 85610; 86677; 93005; 96361; 96372; 96374; 96376; 99285; A9270; G0008; G0009; G0378; J1650; J1885; J7040; 90686; 90732; 99284

== ENCOUNTER → 2017-01-01 | Outpatient (CLI) | payer BC ==
--- NOTE | 2017-01-01 09:43 | PCM.PRNOTE ---
- Free Text/Narrative Note: Lexiscan Indication CP Patient was supervised today during infusion portion of the stress test. The patient received Regadenoson 0.4 mg IV and nuclear agent using standard protocol. Sestamibi Tm99 25 Mci was given afterwards Baseline blood pressure is134/95 with a heart rate [address] abnormalities Vital signs at injection: Peak blood pressure 114/77 with a heart rate of102 Vital signs at 4 minutes post injection: Peak blood pressure 142/75with a heart rate of83 EKG SR without further ST changes Patient complains of slightly chest pain spontaneously resolved Adverse effects from Christy scan none Test done due to end of protocol Impression 1. electrocardiographically nondiagnostic for ischemia due to chemical protocol 2. nuclear imaging pending
--- NOTE | 2017-01-01 15:03 | NM ---
EXAMINATION: Nuclear medicine myocardial perfusion study HISTORY: Atypical chest pain. PROCEDURE: Following intravenous administration of 0.4 mg of Lexiscan and 25.9 mCi of technetium 99m sestamib i, stress SPECT images including gating imaging was performed. FINDINGS: Stress myocardial SPECT images demonstrates moderate area of minimally decreased perfusion along the inferior wall from the midportion to base. Review of gated images demonstrates normal wall motion, contractility and wall thickening. The left ventricular ejection fraction is 75 %. The left ventricular chamber size is normal. IMPRESSION: 1. There is mildly decreased perfusion along the inferior wall. Correlate with the rest imaging. 2. Normal ventricular chamber size and function with ejection fraction of 75 %.
== END ==
LOC: MW.NM 08:37
PROVIDERS: ATTEND Family Medicine
DX: R07.89 Other chest pain (principal)
CPT/HCPCS: 78452; 93017; J2785; 78451; 78451-26; A9500

== ENCOUNTER → 2017-01-16 | Outpatient (CLI) | payer BC ==
[~2017-01-16] MED LIST: Albuterol 0.083% 2.5 MG/3 ML Neb Soln NEB ONE
[2017-01-16 08:58] LABS: CHLORIDE,CL 108 mmol/L (98-110); SODIUM,NA 144 mmol/L (136-146)
== END ==
LOC: MW.RT 08:14
PROVIDERS: ATTEND Internal Medicine
DX: R07.9 Chest pain, unspecified (principal)
CPT/HCPCS: 36415; 80053; 80061; 83036; 85025; 85610; 94060; 94727; 94729

== ENCOUNTER 2017-07-18 12:13 | Day surgery (SDC) | payer BC ==
[~2017-07-18 12:13] MED LIST changes: -Albuterol 0.083% 2.5 MG/3 ML Neb Soln NEB ONE; +Betamethasone Acetate/Betamethasone Sod Phosphate 30 MG/5 ML MDV ONE; +Iopamidol 408 MG/ML 50 ML SDV ONE; +Ropivacaine 0.5% 5 MG/ML 30 ML SDV ONE
--- NOTE | 2017-07-18 19:17 | OR ---
SURGEON: Carlotta Izquierdo D.O. DATE OF PROCEDURE: 07/18/2017 OR STAFF: 1. Dieter Souza RN. 2. Diogo Montez RN. 3. Diogo Orozco RN. 4. RT Vi. WOUND CLASSIFICATION: I. PREOPERATIVE DIAGNOSES: 1. Lumbar degenerative disk disease. 2. Lumbar spinal stenosis. 3. Lumbar radiculopathy. POSTOPERATIVE DIAGNOSES: 1. Lumbar degenerative disk disease. 2. Lumbar spinal stenosis. 3. Lumbar radiculopathy. PROCEDURES PERFORMED: 1. Caudal epidural steroid injection. 2. Fluoroscopic guidance for needle placement. 3. Local with oral Valium for sedation. SCREENING QUESTIONS: The patient answered "no" to all of the following questions: 1. Are you allergic to latex? 2. Do you have a bleeding disorder? 3. Do you have any current local or systemic infections? 4. Are you taking any anti-inflammatories or blood thinners? 5. Do you have any joint replacements, heart valve replacements, or a pacemaker? DESCRIPTION OF PROCEDURE: The patient had the procedure thoroughly explained including all possible risks, benefits and alternatives. Consent was signed in my clinic indicating understanding and willingness to proceed. The patient presented to [facility] and was escorted to the dressing room to disrobe and change into a hospital gown. Preoperative vital signs were taken and stable. The patient reported that Valium was taken prior to the procedure. The patient was brought back to the procedure room and placed in the prone position on the procedure room table. A pillow was placed under the hips in order to flatten the lumbar lordosis. The back was prepped with ChloraPrep and sterilely draped. All personnel in the operating room were dressed in appropriate attire including surgical scrubs, head and shoe covers. This was to ensure sterility while in the treatment room. During the time fluoroscopy was in use, all personnel in the operating room wore lead bailon with thyroid collars. Sterile technique was used throughout the procedure. The patient was awake and conversant throughout the procedure. There was no evidence of infection at the site of needle insertion. Skeletal landmarks were identified under fluoroscopy for the caudal epidural. Skin was anesthetized with 2% lidocaine with a sterile 27-gauge 1.5 inch needle. Then a 20-gauge Tuohy epidural needle was placed in the epidural space with loss of resistance technique under fluoroscopic guidance. No heme, cerebrospinal fluid, or paresthesias were noted. Isovue-200 contrast dye was injected in 0.2 cubic centimeter increments and seen to outline the epidural space in both AP and lateral views. There was no intravascular flow pattern observed under live fluoroscopy. Then 12 milligrams of Celestone was slowly injected after negative aspiration. The patient tolerated the procedure well. Vital signs were stable during and after the procedure. The staff escorted the patient to the recovery area and the patient was released in stable condition after a brief stay in the recovery room monitored by the nurse. The patient was given both oral and written discharge and follow up instructions with recommendation to follow up given for 2-3 weeks. The patient voiced understanding including understanding of those signs and symptoms that would require emergency care. The patient knows how to contact the office if there are any additional problems or questions in the meantime. PREOPERATIVE PAIN: 7/10. POSTOPERATIVE PAIN: 3/10. FOLLOWUP: Follow up in the Pain Clinic in 3 weeks. SAMAN / EAN /[id number]
== END 2017-07-18 14:00 | disposition home or self-care (01) ==
LOC: MW.SDS 12:13
PROVIDERS: ATTEND Anesthesiology
DX: G89.29 Other chronic pain (principal); M51.16 Intervertebral disc disorders with radiculopathy, lumbar region; M48.061 Spinal stenosis, lumbar region without neurogenic claudication; M43.10 Spondylolisthesis, site unspecified; M79.1 Myalgia; G62.9 Polyneuropathy, unspecified; M51.34 Other intervertebral disc degeneration, thoracic region; J45.909 Unspecified asthma, uncomplicated; K21.9 Gastro-esophageal reflux disease without esophagitis; E78.00 Pure hypercholesterolemia, unspecified; K58.9 Irritable bowel syndrome, unspecified; F41.9 Anxiety disorder, unspecified; F32.9 Major depressive disorder, single episode, unspecified; I10 Essential (primary) hypertension; F17.210 Nicotine dependence, cigarettes, uncomplicated; Z88.0 Allergy status to penicillin; Z91.030 Bee allergy status; Z79.891 Long term (current) use of opiate analgesic; Z79.899 Other long term (current) drug therapy; Z90.49 Acquired absence of other specified parts of digestive tract; M54.6 Pain in thoracic spine
CPT/HCPCS: 62323; 72146; J0702; J2795; Q9966

== ENCOUNTER 2017-08-15 11:56 | Day surgery (SDC) | payer BC ==
[~2017-08-15 11:56] MED LIST changes: +Lidocaine 2% 5 ML SDV ONE
--- NOTE | 2017-08-15 21:32 | OR ---
SURGEON: Carlotta Izquierdo D.O. DATE OF PROCEDURE: 08/15/2017 OR STAFF PRESENT: 1. Diogo Montez. 2. Diogo Orozco RN. 3. Christa Chase RT. WOUND CLASSIFICATION: I. PREOPERATIVE DIAGNOSES: 1. Lumbar degenerative disk disease. 2. Lumbar spondylosis. 3. Lumbar radiculopathy. POSTOPERATIVE DIAGNOSES: 1. Lumbar degenerative disk disease. 2. Lumbar spondylosis. 3. Lumbar radiculopathy. PROCEDURE PERFORMED: 1. Caudal epidural steroid injection. 2. Fluoroscopic guidance for needle placement. 3. Local with oral Valium for sedation. SCREENING QUESTIONS: The patient answered "no" to all of the following questions: 1. Are you allergic to latex? 2. Do you have a bleeding disorder? 3. Do you have any current local or systemic infections? 4. Are you taking any anti-inflammatories or blood thinners? 5. Do you have any joint replacements, heart valve replacements, or a pacemaker? DESCRIPTION OF PROCEDURE: The patient had the procedure thoroughly explained including all possible risks, benefits and alternatives. Consent was signed in my clinic indicating understanding and willingness to proceed. The patient presented to [facility] and was escorted to the dressing room to disrobe and change into a hospital gown. Preoperative vital signs were taken and stable. The patient reported that Valium was taken prior to the procedure. The patient was brought back to the procedure room and placed in the prone position on the procedure room table. A pillow was placed under the hips in order to flatten the lumbar lordosis. The back was prepped with ChloraPrep and sterilely draped. All personnel in the operating room were dressed in appropriate attire including surgical scrubs, head and shoe covers. This was to ensure sterility while in the treatment room. During the time fluoroscopy was in use, all personnel in the operating room wore lead bailon with thyroid collars. Sterile technique was used throughout the procedure. The patient was awake and conversant throughout the procedure. There was no evidence of infection at the site of needle insertion. Skeletal landmarks were identified under fluoroscopy for the caudal epidural. Skin was anesthetized with 2% lidocaine with a sterile 27-gauge 1.5 inch needle. Then a 20-gauge Tuohy epidural needle was placed in the epidural space with loss of resistance technique under fluoroscopic guidance. No heme, cerebrospinal fluid, or paresthesias were noted. Isovue-200 contrast dye was injected in 0.2 cubic centimeter increments and seen to outline the epidural space in both AP and lateral views. There was no intravascular flow pattern observed under live fluoroscopy. Then 12 milligrams of Celestone was slowly injected after negative aspiration. The patient tolerated the procedure well. Vital signs were stable during and after the procedure. The staff escorted the patient to the recovery area and the patient was released in stable condition after a brief stay in the recovery room monitored by the nurse. The patient was given both oral and written discharge and follow up instructions with recommendation to follow up given for 2-3 weeks. The patient voiced understanding including understanding of those signs and symptoms that would require emergency care. The patient knows how to contact the office if there are any additional problems or questions in the meantime. PREOPERATIVE PAIN: 5/10. POSTOPERATIVE PAIN: 2/10. FOLLOWUP: Follow up in the Pain Clinic in 3 weeks. SAMAN / EAN /[id number] KYLE
== END 2017-08-15 14:15 | disposition home or self-care (01) ==
LOC: MW.SDS 11:56
PROVIDERS: ATTEND Anesthesiology
DX: M51.16 Intervertebral disc disorders with radiculopathy, lumbar region (principal); M47.26 Other spondylosis with radiculopathy, lumbar region; M19.90 Unspecified osteoarthritis, unspecified site; M46.97 Unspecified inflammatory spondylopathy, lumbosacral region; M51.17 Intervertebral disc disorders with radiculopathy, lumbosacral region; M43.10 Spondylolisthesis, site unspecified; J44.1 Chronic obstructive pulmonary disease with (acute) exacerbation; K21.9 Gastro-esophageal reflux disease without esophagitis; E78.00 Pure hypercholesterolemia, unspecified; K58.9 Irritable bowel syndrome, unspecified; G62.9 Polyneuropathy, unspecified; I10 Essential (primary) hypertension; F32.9 Major depressive disorder, single episode, unspecified; F17.210 Nicotine dependence, cigarettes, uncomplicated; F41.9 Anxiety disorder, unspecified; E66.9 Obesity, unspecified; Z91.030 Bee allergy status; Z88.0 Allergy status to penicillin; Z79.52 Long term (current) use of systemic steroids; Z79.899 Other long term (current) drug therapy; Z98.890 Other specified postprocedural states
CPT/HCPCS: 62323; J0702; J2795; Q9966